=== PATIENT | male | born 1960 | race Two or more races ===

== ENCOUNTER 2022-01-19 19:35 | Inpatient (IN) | payer MEDICARE, OTHER ==
[~2022-01-19] VITALS: Ht 172.7 cm; Wt 72.6 kg
--- NOTE | 2022-01-19 19:48 | NUR ---
PT BIBRA C/O HAVING AN ACUTE EPISODE OF INAPPROPRIATE BEHAVIOR AT SNF. PT NOT ANSWERING ANY QUESTIONS UPON ASSESSMENT. PT ATTACHED TO MONITOR AND POX. PT GIVEN BLANKET AND CALL LIGHT WITHIN REACH.
--- NOTE | 2022-01-19 19:50 | NUR ---
COVID ANTIGEN SWAB COLLECTED AND SENT TO LAB. RECREATIONAL SPECIALIST AT PT'S BEDSIDE
--- NOTE | 2022-01-19 19:54 | NUR ---
LAB AT BEDSIDE
--- NOTE | 2022-01-19 20:14 | NUR ---
URINE SENT TO LAB
[2022-01-19] MEDS ORDERED: QUET200T PO (20:17)
[2022-01-19] MEDS ORDERED: ALBU90AE2 INH (20:17)
[2022-01-19] MEDS ORDERED: PALIPERIDONE IM (20:17)
[2022-01-19] MEDS ORDERED: TAMS-12 PO (20:17)
[2022-01-19] MEDS ORDERED: SIMV-49 PO (20:17)
[2022-01-19] MEDS ORDERED: ROFL500T PO (20:17)
[2022-01-19 20:23] LABS: BASOPHILS # (AUTO) 0.1 K/uL (0.0-0.2); EOSINOPHILS % (AUTO) 1.8 % (0.0-6.0); HEMATOCRIT 40 % (39-51); HEMOGLOBIN 13.4 g/dL (13.5-17.5); LYMPHOCYTES # (AUTO) 1.3 K/uL (0.8-4.8); LYMPHOCYTES % (AUTO) 13.9 % (20.0-44.0); MEAN CORPUSCULAR HGB CONC 34 g/dl (31.0-36.0); MEAN CORPUSCULAR VOLUME 86 fL (80-96); MONOCYTES # (AUTO) 1.2 K/uL (0.1-1.30); MONOCYTES % (AUTO) 13.5 % (2.0-12.0); NEUTROPHILS # (AUTO) 6.3 K/uL (1.8-8.9); NEUTROPHILS % (AUTO) 69.8 % (43.0-81.0); PLATELET COUNT (AUTO) 383 K/uL (150-450)
[2022-01-19 20:32] LABS: CALCIUM, SERUM 8.6 mg/dL (8.5-10.1); CARBON DIOXIDE 29 mmol/L (21-32); CHLORIDE 93 mmol/L (98-107); CREATININE 0.9 mg/dL (0.6-1.3); GLUCOSE 112 mg/dL (74-106); POTASSIUM 3.9 mmol/L (3.5-5.1); SODIUM SERUM 130 mmol/L (136-145); UREA NITROGEN, BLOOD 12 mg/dL (7-18)
[2022-01-19 20:37] LABS: ALANINE AMINOTRANSFERASE 19 U/L (12-78); ALBUMIN 3.8 g/dL (3.4-5.0); ALCOHOL, BLOOD < 3 mg/dL (0-0); ALKALINE PHOSPHATASE 82 U/L (46-116); ASPARTATE AMINOTRANSFERASE 11 U/L (15-37); BILIRUBIN,DIRECT 0.1 mg/dL (0.0-0.2); BILIRUBIN,TOTAL 0.4 mg/dL (0.2-1.0); TOTAL PROTEIN, SERUM 7.3 g/dL (6.4-8.2)
[2022-01-19 20:39] LABS: ACETAMINOPHEN < 0 ug/ml (10-30)
[2022-01-19 20:48] LABS: BILIRUBIN,URINE NEGATIVE (NEGATIVE); COLOR,URINE YELLOW (YELLOW); LEUKOCYTE ESTERASE ,URINE NEGATIVE (NEGATIVE); NITRITE, URINE NEGATIVE (NEGATIVE); PROTEIN,URINE NEGATIVE (NEGATIVE); UGLUCOSE NEGATIVE (NEGATIVE); UROBILINOGEN,URINE 0.2 EU/dL (0.2)
--- NOTE | 2022-01-19 21:59 | NUR ---
report given to mehreen Mathews for parminder
[2022-01-20] MEDS ORDERED: ALBUTEROL SULFATE INH SCH
[2022-01-20 01:10] VITALS: BP 125/66
--- NOTE | 2022-01-20 01:20 | NUR ---
PATIENT TRANSFERRED TO GPS IN STABLE CONDITION
[2022-01-20] MEDS ORDERED: MAG HYDROX/AL HYDROX/SIMETH 30 ML UDC PO PRN (01:30)
[2022-01-20] MEDS ORDERED: ACETAMINOPHEN 325 MG TABLET PO PRN (01:30)
[2022-01-20] MEDS ORDERED: MAGNESIUM HYDROXIDE 30 ML UDC PO PRN (01:30)
[2022-01-20] MEDS ORDERED: BLOOD SUGAR DIAGNOSTIC 1 EACH STRIP IN ONE (01:30)
--- NOTE | 2022-01-20 02:13 | NUR ---
GPS RN ADMITTING NOTES: PATIENT ARRIVED THIS UNIT ON A STRETCHER WITH 2 ER ESCORT AT 0110. PATIENT IS ON A 5150 HOLD FOR DTO/GD. HOLD WAS PLACED ON 01/20/22 @ 0052. PER HOLD, PATIENT WAS BROUGHT INTO ER BY AMBULANCE FROM [facility] FOR CONFUSION, BIZARRE BEHAVIOR, STRIKING AT STAFF, INCREASED AGITATION AND NOT COMPLYING WHEN DIRECTED. UPON ARRIVAL AT ER PATIENT APPEARS CONFUSED, STARES INTO AIR, UNABLE TO PROVIDE OWN FEEDING AND WAS VERY COMBATIVE. UPON FACE TO FACE EVALUATION, PATIENT IS A/O X1-2, APPEARS DEPRESSED, FLAT AFFECT, DISHEVELED, SELECTIVELY MUTE, INTERMITTENTLY ASKING FOR COFFEE, UNSTEADY GAIT, UNCOOPERATIVE AND REFUSING TO ANSWER MOST OF THE ADMISSION QUESTIONS. PATIENT HAS NO S/S OF DISTRESS, VITAL SIGNS WNL. DENIES ANY PAIN AT THIS TIME. PER PATIENT, HE IS FULLY VACCINATED WITH PFIZER BUT UNABLE TO RECALL THE DATES, REFUSED PNEUMOCOCCAL VACCINE. PATIENT BELONGINGS INVENTORIED, PATIENT HAS NO CONTRABAND. PATIENT REFUSED TO SIGNS ALL ADMISSION PAPERS AND REFUSED SKIN ASSESSMENT. ACCU CHECK DONE BS122. PATIENT IS UNDER THE PSYCHIATRIC CARE OF DR MATTHEWS AND [facility], BOTH DOCTORS HAVE BEEN NOTIFIED OF PATIENT ADMISSION AND ORDERS CARRIED OUT. PATIENT HANDBOOK AND PRESCRIPTION MEDICATIONS GUIDE GIVEN TO PATIENT. PATIENT HAS BEEN ORIENTED TO UNIT POLICY. BED IN LOW LOCKED POSITION, SIDE RAILS UP X2 FOR SAFETY. CALL GRAVES WITHIN REACH. ALL PATIENT CARE NEEDS HAVE BEEN MET AT THIS TIME. WILL CONTINUE TO MONITOR FOR Q15 SAFETY, MOOD AND BEHAVIOR.
--- NOTE | 2022-01-20 06:43 | NUR ---
GPS RN NOTES: PATIENT SISTER ANGELITA ABDULLAHI CALLED AT 0624 AND INFORMED OF PATIENT ADMISSION TO [facility]. UNIT PHONE NUMBER GIVEN, VISITING HOURS AND HOLD EXPLAINED. WILL ENDORSE TO AM SHIFT.
[2022-01-20 08:00] VITALS: BP 116/58
[2022-01-20] MEDS: TAMSULOSIN 0.4 MG CAP.SR.24H PO SCH (08:38)
[2022-01-20] MEDS ORDERED: Medication Not On Formulary EA (Roflumilast (Daliresp) 500 MCG) PO SCH (09:00)
--- NOTE | 2022-01-20 09:27 | NUR ---
KAMALJIT Initial Discharge Plan: Patient currently resides at [facility] [address] [place] [address], [place], [place] ([phone]). KAMALJIT contacted Kim social security assessor from the nursing facility ([phone]) (Office: [phone], ext. [phone]) and left a voicemail to discuss if pt is welcomed back or not. KAMALJIT requested to contact this engineering writer back. KAMALJIT will work with the MD and treatment team to help coordinate appropriate treatment.
--- NOTE | 2022-01-20 09:27 | NUR ---
Clinical Social Work Note: Patient placed on a 5150 hold for danger to others and GD. Patient was aggressive at this facility and was striking out at staff. Patient currently resides at [address] ([phone]). KAMALJIT contacted Kim director of social media marketing from the nursing facility ([phone]) (Office: [phone], ext. [phone]) and left a voicemail to discuss if pt is welcomed back or not.
--- NOTE | 2022-01-20 09:28 | NUR ---
Treatment Plan: Patient refused to sign treatment plan due to being suspicious.
--- NOTE | 2022-01-20 09:30 | NUR ---
Family Contact: KAMALJIT contacted pt's sister Patti ([phone]) to discuss treatment plan and discharge plan. SW educated sister on 1420/4130 hold. She reported that she is an RN and is familiar of treatment. She reported that she has not seen pt this way for a while. She reported that pt needs to have a medical examination before treating his psych issues. KAMALJIT had to re-direct Patti and explain the process multiple times.
--- NOTE | 2022-01-20 09:38 | NUR ---
RN Notes: Received pt. awake in bed, responsive to staffs, pt. is delusional and paranoid and stating that he is mad with the government.Ate 100% for breakfast, and compliant on med. Pt. isolates in room, encouraged to verbalize feelings and motivated to attend group activity. Needs attended and will continue to monitor for safety.
--- NOTE | 2022-01-20 09:51 | NUR ---
SNF Contact: KAMALJIT contacted Kim social sciences lecturer from the nursing facility ([phone]) (Office: [phone], ext. [phone]) and left a voicemail to discuss if pt is welcomed back or not. She stated that she will contact this report writer.
--- NOTE | 2022-01-20 15:02 | NUR ---
Called the office of Dr. Ellis at [phone] and spoke to Jammie.
[2022-01-20 16:00] VITALS: BP 121/71
[2022-01-20] MEDS: risperiDONE 1 MG TABLET PO SCH (16:15)
[2022-01-20 19:52] VITALS: BP 128/62
[2022-01-20 20:39] VITALS: BP 126/62
[2022-01-20] MEDS: SIMVASTATIN 20 MG TABLET PO SCH (21:27)
[2022-01-20] MEDS: MIRTAZAPINE 15 MG TABLET PO SCH (21:27)
[2022-01-21 07:24] LABS: ALBUMIN 3.5 g/dL (3.4-5.0); BILIRUBIN,TOTAL 0.4 mg/dL (0.2-1.0); CALCIUM, SERUM 8.5 mg/dL (8.5-10.1); CREATININE 0.5 mg/dL (0.6-1.3); POTASSIUM 4.1 mmol/L (3.5-5.1); TOTAL PROTEIN, SERUM 6.6 g/dL (6.4-8.2)
[2022-01-21 08:00] VITALS: BP 109/68
[2022-01-21] MEDS: risperiDONE 1 MG TABLET PO SCH ×2 (08:05→17:16)
[2022-01-21] MEDS: TAMSULOSIN 0.4 MG CAP.SR.24H PO SCH (08:05)
[2022-01-21] MEDS: LORAZEPAM 1 MG TABLET PO PRN (14:29)
--- NOTE | 2022-01-21 14:31 | NUR ---
RN-NOTES PATIENT REFUSED CT SCAN DESPITE EXPLANATIONS RISK AND BENEFITS. PATIENT GETS ANGRY. NOTED PATIENT ALSO RESPONDING TO INTERNAL STIMULI/TALKING IN A LOUD VOICE AND LAUGHING TO SELF. ATIVAN 1MG P.O GIVEN PRN ORDER. WILL CONT. MONITORING FOR SAFETY AND BEHAVIOR. .
--- NOTE | 2022-01-21 15:35 | NUR ---
RN-NOTES PATIENT LYING IN BED SLEEPING ,EASILY AROUSED,NO ACUTE DISTRESS NOTED.
[2022-01-21 16:00] VITALS: BP 125/80
[2022-01-21 16:52] LABS: CHOLESTEROL 135 mg/dL (<200); HDL CHOLESTEROL 62 mg/dL (40-60); LDL 58 mg/dL (0-99); TRIGLYCERIDES 79 mg/dL (30-150)
--- NOTE | 2022-01-21 17:30 | NUR ---
RN-NOTES PATIENT IS VISIBLE IN THE UNIT AMBULATING WITH WALKER,,A/OX2 ,NO ACUTE DISTRESS NOTED.COMPLIANT WITH MEDICATIONS. NOTED PATIENT WITH EASILY ANGRY ,NEEDY AND DEMANDING BEHAVIOR. ALL NEEDS ATTENDED AND ANTICIPATED WILL CONT. MONITORING FOR SAFETY AND BEHAVIOR.WILL ENDORSE TO INCOMING SHIFT FOR CONTINUITY OF CARE.
[2022-01-21 19:59] VITALS: BP 115/72
[2022-01-21 20:00] VITALS: BP 115/72
[2022-01-21] MEDS: SIMVASTATIN 20 MG TABLET PO SCH (22:12)
[2022-01-21] MEDS: MIRTAZAPINE 15 MG TABLET PO SCH (22:12)
[2022-01-22] MEDS: LORAZEPAM 1 MG TABLET PO PRN ×2 (07:24→19:51)
--- NOTE | 2022-01-22 07:25 | NUR ---
RN-NOTES RECEIVED PATIENT ANGRY RESPONDING TO INTERNAL STIMULI/TALKING IN A LOUD VOICE AND MUMBLING TO SELF. ATIVAN 1MG P.O GIVEN PRN ORDER. WILL CONT. MONITORING FOR SAFETY AND BEHAVIOR. .
[2022-01-22 08:00] VITALS: BP 110/67
--- NOTE | 2022-01-22 08:30 | NUR ---
RN-NOTES PATIENT LYING IN BED AWAKE,ALERT,NO ACUTE DISTRESS NOTED.
[2022-01-22] MEDS: TAMSULOSIN 0.4 MG CAP.SR.24H PO SCH (09:04)
[2022-01-22] MEDS: risperiDONE 1 MG TABLET PO SCH ×2 (09:04→17:04)
[2022-01-22 16:00] VITALS: BP 133/76
--- NOTE | 2022-01-22 17:38 | NUR ---
RN-NOTES PATIENT LYING IN BED AWAKE,ALERT,A/OX2 ,NO ACUTE DISTRESS NOTED.AMBULATORY WITH WALKER.COMPLIANT WITH MEDICATIONS.NOTED PATIENT WITH NEEDY,TALKING AND LAUGHING TO SELF, AND DEMANDING BEHAVIOR. ALL NEEDS ATTENDED AND ANTICIPATED WILL CONT. MONITORING FOR SAFETY AND BEHAVIOR. WILL ENDORSE TO INCOMING SHIFT FOR CONTINUITY OF CARE.
[2022-01-22 19:28] VITALS: BP 117/72
--- NOTE | 2022-01-22 19:54 | NUR ---
GPS RN NOTE: ANXIETY PATIENT IS ANGRY, ANXIOUS, RESPONDING TO INTERNAL STIMULI/TALKING IN A LOUD VOICE AND MUMBLING TO SELF. ATIVAN 1 MG P.O GIVEN PRN ORDER. WILL CONT. MONITORING FOR SAFETY AND BEHAVIOR.
--- NOTE | 2022-01-22 20:03 | NUR ---
GPS RN NOTE PATIENT IS FOCUSED ON DRINKING COFFEE AND JUICES EVERY 15- 30 MINUTES. EXPLAINED TO THE PATIENT THAT HIS BLOOD GLUCOSE LEVEL AND HGBA1C IS ELEVATED AND HE NEEDS TO AVOID DRINKING TOO MUCH COFFEE AND JUICES, DRINK WATER INSTEAD. DESPITE OF RISKS AND BENEFITS EXPLANATIONS, PATIENT GETS ANXIOUS, AGITATED, IRRITABLE EASILY AND REFUSES TO DRINK WATER, ONLY INSISTS TO DRINK COFFEE AND JUICES. PATIENT IS REDIRECTABLE WITH SET LIMITS AT THIS TIME. WILL CONTINUE TO MONITOR FOR ANY CHANGE OF CONDITION.
[2022-01-22 20:13] VITALS: BP 117/72
--- NOTE | 2022-01-22 20:42 | NUR ---
GPS RN NOTE PATIENT CAME OUT OF HIS ROOM AGAIN ASKING FOR 3 APPLE JUICE, WHEN WASHER ASSEMBLER TRIED TO EXPLAIN TO THE PATIENT ABOUT RISKS OF DRINKING TOO MUCH JUICE INSTEAD OF WATER DUE TO HIS HIS ELEVATED BLOOD SUGAR LEVELS AND HGBA1C, PATIENT GOT AGITATED, THUD HIS WALKER ON THE GROUND AND STATED," YOU ARE A JERK." THEN PATIENT WALKED BACK TO HIS ROOM REFUSING TO DRINK WATER. WILL CONTINUE TO MONITOR PATIENT'S BEHAVIOR.
[2022-01-22] MEDS: SIMVASTATIN 20 MG TABLET PO SCH (21:18)
[2022-01-22] MEDS: MIRTAZAPINE 15 MG TABLET PO SCH (21:18)
[2022-01-23 08:00] VITALS: BP 113/62
[2022-01-23] MEDS: risperiDONE 1 MG TABLET PO SCH ×2 (08:45→16:46)
[2022-01-23] MEDS: TAMSULOSIN 0.4 MG CAP.SR.24H PO SCH (08:45)
--- NOTE | 2022-01-23 09:24 | NUR ---
RN-CO:PATIENT IS AWAKE, DENIED PAIN AND DISCOMFORTS. UNKEMPT AND DISHEVELED. HE IS FOCUS ON DRINKING COFFEE AND GETS IRRITATED WHEN REDIRECT. HE IS VISIBLE IN THE UNIT. I WILL CONTINUE TO MONITOR.
--- NOTE | 2022-01-23 13:09 | NUR ---
.PT IS DEMANDING AND ENTITLED.
--- NOTE | 2022-01-23 15:06 | NUR ---
RN-CO: TALKED TO ANGELITA SISTER IF THEY HAVE DALIRESP TABLET AT HOME, SHE STATED THAT THEY DON'T HAVE IT. I WILL NOTIFY MINDY MCKNIGHT NP FOR ALTERNATIVE.
[2022-01-23 16:00] VITALS: BP 121/72
--- NOTE | 2022-01-23 19:20 | NUR ---
GPS RN NOTES RECEIVED PATIENT IN BED AWAKE, ALERT AND ORIENTED X1-2, NO S/SX OF ACUTE DISTRESS NOTED. PATIENT IS VISIBLE IN THE UNIT, EASILY AGITATED, DEMANDING, ENTITLED, UNKEMPT AND DISHEVELED. PT IS FOCUS ON DRINKING COFFEE AND GETS IRRITATED WHEN REDIRECT. DENIES PAIN OR DISCOMFORT AT THIS TIME. NO VERBALIZATION OF THOUGHTS AND FEELINGS. SAFETY PRECAUTIONS IN PLACE. WILL CONTINUE TO MONITOR Q15MIN ROUNDS FOR SAFETY AND BEHAVIOR.
[2022-01-23] MEDS: ALBUTEROL FS 2.5 MG/3 ML VIAL.NEB NEB PRN (19:35)
[2022-01-23] MEDS: IPRATROPIUM NEB FS 0.5 MG/2.5 ML AMPUL.NEB NEB PRN (19:35)
[2022-01-23 20:13] VITALS: BP 130/85
[2022-01-23] MEDS: MIRTAZAPINE 15 MG TABLET PO SCH (21:25)
[2022-01-23] MEDS: SIMVASTATIN 20 MG TABLET PO SCH (21:25)
[2022-01-24 08:00] VITALS: BP 158/79
[2022-01-24] MEDS: TAMSULOSIN 0.4 MG CAP.SR.24H PO SCH (08:51)
[2022-01-24] MEDS: risperiDONE 1 MG TABLET PO SCH ×2 (08:51→16:59)
[2022-01-24 16:00] VITALS: BP 138/88
--- NOTE | 2022-01-24 19:45 | NUR ---
GPS RN OPENING NOTES: RECEIVED PATIENT IN HALLWAY ASKING FOR COFFEE, AWAKE A/O X1-2, DISHEVELED, UNKEPT, RESTLESS, ANXIOUS, DEMANDING FOR COFFEE, DISORGANIZED. AMBULATING WITH WALKER. TEACHING PROVIDED ABOUT TOO MUCH COFFEE CONSUMPTION BUT PATIENT IS VERY FOCUSED ON COFFEE AND KEEPS ASKING EVERY FEW MINUTES, REENFORCEMENT NEEDED. NO S/S OF DISTRESS. RESPIRATION EVEN AND UNLABORED WITH EQUAL RISE AND FALL OF THE CHEST, ON ROOM AIR. OFFERED FLUID AND SNACKS TOLERATED. WILL CONTINUE TO MONITOR Q15 FOR MOOD, SAFETY AND BEHAVIOR.
[2022-01-24 20:58] VITALS: BP 127/75
[2022-01-24] MEDS: MIRTAZAPINE 15 MG TABLET PO SCH (21:20)
[2022-01-24] MEDS: SIMVASTATIN 20 MG TABLET PO SCH (21:20)
--- NOTE | 2022-01-24 21:26 | NUR ---
GPS RN NOTES: REMERON 7.5MG WASTED PER PARTIAL DOSE ORDER. WILL CONTINUE TO MONITOR.
[2022-01-25] MEDS: ALBUTEROL FS 2.5 MG/3 ML VIAL.NEB NEB PRN (01:03)
[2022-01-25] MEDS: IPRATROPIUM NEB FS 0.5 MG/2.5 ML AMPUL.NEB NEB PRN (01:04)
[2022-01-25 08:00] VITALS: BP 134/73
[2022-01-25] MEDS: risperiDONE 1 MG TABLET PO SCH ×2 (08:28→16:49)
[2022-01-25] MEDS: TAMSULOSIN 0.4 MG CAP.SR.24H PO SCH (08:28)
[2022-01-25 15:12] VITALS: BP 148/82
[2022-01-25 19:42] VITALS: BP 118/74
--- NOTE | 2022-01-25 19:42 | NUR ---
GPS RN OPENING NOTES: RECEIVED PATIENT AMBULATING IN HALLWAY ASKING FOR COFFEE, AWAKE A/O X1-2, DISHEVELED, UNKEPT, RESTLESS, ANXIOUS, NO CHANGE IN PATIENT CONDITION, DEMANDING FOR COFFEE, DISORGANIZED. TEACHING PROVIDED ABOUT THE EFFECT OF TOO MUCH COFFEE CONSUMPTION BUT PATIENT IS VERY FOCUSED ON COFFEE AND KEEPS ASKING EVERY FEW MINUTES, REENFORCEMENT NEEDED. NO S/S OF DISTRESS. RESPIRATION EVEN AND UNLABORED WITH EQUAL RISE AND FALL OF THE CHEST, ON ROOM AIR. OFFERED FLUID AND SNACKS TOLERATED. WILL CONTINUE TO MONITOR Q15 FOR MOOD, SAFETY AND BEHAVIOR.
[2022-01-25] MEDS: SIMVASTATIN 20 MG TABLET PO SCH (21:12)
[2022-01-25] MEDS: MIRTAZAPINE 15 MG TABLET PO SCH (21:13)
[2022-01-26 08:00] VITALS: BP 100/66
[2022-01-26] MEDS: risperiDONE 1 MG TABLET PO SCH ×2 (08:14→16:20)
[2022-01-26] MEDS: TAMSULOSIN 0.4 MG CAP.SR.24H PO SCH (08:14)
--- NOTE | 2022-01-26 09:10 | NUR ---
RN-CO: DR MATTHEWS TALKED TO THE PATIENT AND AGREED TO HAVE CT SCAN W/O CONTRAST.
--- NOTE | 2022-01-26 09:26 | NUR ---
Court Notification: KAMALJIT contacted pt's sister Patti ([phone]) and notified of 5250 hearing is today.
--- NOTE | 2022-01-26 09:43 | NUR ---
RN-CO: PATIENT IS VISIBLE IN THE UNIT, DISHEVELED AND UNKEMPT. REFUSED TO SHOWER, FOCUS ON DRINKING COFFEE AND JUICE . HE NEEDS LIMIT SETTING. HE IS SOMEWHAT BETTER BECAUSE HE LISTENS TO REDIRECTIONS MORE. EASILY AGITATED AND NOTED TALKING TO SELF.
--- NOTE | 2022-01-26 10:58 | NUR ---
Court Hearing: Patient's court hearing for 5070 was today and it was upheld for GD.
--- NOTE | 2022-01-26 15:00 | NUR ---
RN-CO: PT REFUSED CT SCAN , HE STARTED YELLING AND SCREAMING WHEN HE LEARNED THAT HE NEEDS TO GO TO THE PROCEDURE. IN THE MORNING HE AGREED TO TAKE IT WHEN DR MATTHEWS TALKED TO HIM.
[2022-01-26 16:00] VITALS: BP 142/84
--- NOTE | 2022-01-26 19:15 | NUR ---
GPS RN NOTES PATIENT IN BED AWAKE, ALERT AND ORIENTED X2, NO S/SX OF ACUTE DISTRESS NOTED. PATIENT IS VISIBLE IN THE UNIT, DEMANDING, UNKEMPT AND DISHEVELED, TALKING TO SELF, REDIRECTABLE, FOCUS ON COFFEE AND JUICE. DENIES PAIN OR DISCOMFORT AT THIS TIME. NO VERBALIZATION OF THOUGHTS AND FEELINGS. SAFETY PRECAUTIONS IN PLACE. WILL CONTINUE TO MONITOR Q15MIN ROUNDS FOR SAFETY AND BEHAVIOR.
[2022-01-26 20:00] VITALS: BP 121/65
[2022-01-26] MEDS: SIMVASTATIN 20 MG TABLET PO SCH (21:01)
[2022-01-26] MEDS: MIRTAZAPINE 15 MG TABLET PO SCH (21:01)
[2022-01-27 08:00] VITALS: BP 112/75
[2022-01-27] MEDS: TAMSULOSIN 0.4 MG CAP.SR.24H PO SCH (08:08)
[2022-01-27] MEDS: risperiDONE 1 MG TABLET PO SCH ×2 (08:08→16:14)
--- NOTE | 2022-01-27 09:30 | NUR ---
RN Notes: Received pt. awake in bed, quiet, suspicious and responsive to staffs. Pt. ate breakfast and compliant on meds. Pt. is unkempt and with poor hygiene, isolates in room and up for needs. Pt. is needy and needs attended. Encouraged to verbalize feelings, motivated to take shower and encouraged to attend group activity. No distress and no agitation noted. Will continue to monitor for safety.
--- NOTE | 2022-01-27 15:00 | NUR ---
Pt. refused for CT of the head again and tech made aware.
[2022-01-27 16:00] VITALS: BP 117/67
--- NOTE | 2022-01-27 19:30 | NUR ---
GPS RN NOTE, RECEIVED PATIENT AWAKE AND IN BED, NO S/S OR COMPLAINTS OF PAIN AT THIS TIME. PATIENT IS DISPLAYING NO S/S OF APPARENT DISTRESS AT THIS TIME. PATIENT BREATHING IS UNLABORED WITH EQUAL RISE AND FALL OF THE CHEST. PATIENT IS ALERT AND ORIENTED X 1-2 ON ROOM AIR WITH A SPO2 95%. PATIENT IS FOCUSED ON COFFEE. PATIENT IS COMPLIANT WITH MEDICATIONS, CONFUSED, ANXIOUS, PARANOID, NEEDS REDIRECTION, AND COOPERATIVE. PATIENT DENIES SUICIDAL AND HOMICIDAL IDEATIONS AT THIS TIME. PATIENT ASSISTED WITH TURNING AND REPOSITIONING Q2HR AND PRN FOR COMFORT AND CIRCULATION. PATIENT HAS NO NEEDS AT THIS TIME. PATIENT EDUCATED ON THE USE OF THE CALL GRAVES. PATIENT BED SIDE RAILS UP X 2 FOR SAFETY. PATIENT BED IS LOCKED, LOW, WITH BED ALARM ON. WILL CONTINUE TO MONITOR THIS PATIENT Q15 MINUTES WITH THE HELP OF STAFF TO MAINTAIN SAFETY.
[2022-01-27 20:00] VITALS: BP 131/68
[2022-01-27] MEDS: MIRTAZAPINE 15 MG TABLET PO SCH (21:10)
[2022-01-27] MEDS: SIMVASTATIN 20 MG TABLET PO SCH (21:10)
[2022-01-28 08:00] VITALS: BP 135/70
[2022-01-28] MEDS: risperiDONE 1 MG TABLET PO SCH ×2 (08:19→16:03)
[2022-01-28] MEDS: TAMSULOSIN 0.4 MG CAP.SR.24H PO SCH (08:19)
--- NOTE | 2022-01-28 09:50 | NUR ---
RN Notes: Received pt. awake in bed, responsive to staffs, no distress and no agitation noted. Ate 100% for breakfast, compliant on meds. Pt. is visible in the unit and needy. Encouraged to verbalize feelings and motivated to attend group activity. Needs attended and will continue to monitor for safety.
[2022-01-28 16:00] VITALS: BP 138/80
[2022-01-28 19:38] VITALS: BP 144/78
[2022-01-28] MEDS: LORAZEPAM 1 MG TABLET PO PRN (19:50)
--- NOTE | 2022-01-28 19:53 | NUR ---
GPS RN NOTE: ANXIETY PATIENT IS ANXIOUS/RESTLESS, RESPONDING TO INTERNAL STIMULI/TALKING IN A LOUD VOICE AND MUMBLING TO SELF. ATIVAN 1 MG P.O GIVEN PRN ORDER. WILL CONT. MONITORING FOR SAFETY AND BEHAVIOR.
[2022-01-28 20:17] VITALS: BP 144/78
[2022-01-28] MEDS: SIMVASTATIN 20 MG TABLET PO SCH (21:17)
[2022-01-28] MEDS: MIRTAZAPINE 15 MG TABLET PO SCH (21:17)
[2022-01-29 08:00] VITALS: BP 134/68
[2022-01-29] MEDS: TAMSULOSIN 0.4 MG CAP.SR.24H PO SCH (09:18)
[2022-01-29] MEDS: risperiDONE 1 MG TABLET PO SCH ×2 (09:21→18:44)
[2022-01-29 16:00] VITALS: BP 117/67
--- NOTE | 2022-01-29 18:00 | NUR ---
UP AND DOWN ALL SHIFT.INCONTINENT WITH DIAPER CHGS. FREQ.
[2022-01-29 20:15] VITALS: BP 116/69
[2022-01-29 20:20] VITALS: BP 116/69
--- NOTE | 2022-01-29 20:45 | NUR ---
GPS RN NOTE PATIENT WANTED TO TAKE BREATHING TREATMENT FOR OCCASIONAL SHORT OF BREATH. RT WAS NOTIFIED, RT CAME AND ASSESSED THE PATIENT, O2 SATURATION WAS 92%, BREATHING TREATMENT WAS GIVEN BY RT PER MD ORDER. PATIENT VERBALIZED LATER THAT BREATHING TREATMENT WAS EFFECTIVE. WILL CONTINUE TO MONITOR THE PATIENT FOR ANY CHANGE OF CONDITION.
[2022-01-29] MEDS: IPRATROPIUM NEB FS 0.5 MG/2.5 ML AMPUL.NEB NEB PRN (21:15)
[2022-01-29] MEDS: ALBUTEROL FS 2.5 MG/3 ML VIAL.NEB NEB PRN (21:15)
[2022-01-29] MEDS: SIMVASTATIN 20 MG TABLET PO SCH (21:36)
[2022-01-29] MEDS: MIRTAZAPINE 15 MG TABLET PO SCH (21:36)
[2022-01-30 08:00] VITALS: BP 107/67
[2022-01-30] MEDS: TAMSULOSIN 0.4 MG CAP.SR.24H PO SCH (08:08)
[2022-01-30] MEDS: risperiDONE 1 MG TABLET PO SCH ×2 (08:09→16:23)
--- NOTE | 2022-01-30 09:24 | NUR ---
RN-CO: RN-CO: PATIENT IS VISIBLE IN THE UNIT, NO CHANGES FROM LAST WEEK.STILL FOCUS ON COFFEE AND JUICE. EASILY AGITATED AND YELLED AT THE NURSE WHEN COFFEE OR JUICE IS NOT GIVEN TO HIM RIGHT AWAY. HE NEEDS FIRM LIMIT SETTING. UNMOTIVATED TO GROOMING AND SELFCARE. REFUSED TO TAKE A SHOWER. I WILL CONTINUE TO MONITOR.
[2022-01-30 16:00] VITALS: BP 116/67
--- NOTE | 2022-01-30 19:20 | NUR ---
GPS RN NOTES PATIENT IN BED AWAKE, ALERT AND ORIENTED X2, NO S/SX OF ACUTE DISTRESS NOTED. PATIENT IS VISIBLE IN THE UNIT, DEMANDING, UNKEMPT AND DISHEVELED, TALKING TO SELF, REDIRECTABLE, FOCUS ON COFFEE AND JUICE, EASILY IRRITABLE ANTONIO HIS NEEDS ARE NOT MET. DENIES PAIN OR DISCOMFORT AT THIS TIME. NO VERBALIZATION OF THOUGHTS AND FEELINGS. SAFETY PRECAUTIONS IN PLACE. WILL CONTINUE TO MONITOR Q15MIN ROUNDS FOR SAFETY AND BEHAVIOR.
[2022-01-30] MEDS: MIRTAZAPINE 15 MG TABLET PO SCH (21:40)
[2022-01-30] MEDS: SIMVASTATIN 20 MG TABLET PO SCH (21:40)
[2022-01-31] MEDS: ZOLPIDEM TARTRATE 5 MG TABLET PO PRN ×2 (00:10→22:10)
[2022-01-31 08:00] VITALS: BP 137/68
[2022-01-31] MEDS: risperiDONE 1 MG TABLET PO SCH ×2 (09:22→17:22)
[2022-01-31] MEDS: TAMSULOSIN 0.4 MG CAP.SR.24H PO SCH (09:24)
--- NOTE | 2022-01-31 10:07 | NUR ---
Family Contact: KAMALJIT contacted pt's sister Patti ([phone]) and notified that pt will be discharged 02/01 and waiting for Kim from [facility] to review and accept pt back.
--- NOTE | 2022-01-31 10:08 | NUR ---
Shank Pinner: KAMALJIT received a call from employment case manager Willian ([phone]) left a voicemail. SW contacted back and left a detailed voicemail.
--- NOTE | 2022-01-31 10:20 | NUR ---
KAMALJIT Coordination of Care: KAMALJIT spoke with KAMALJIT Alvarez ([phone]) who confirmed pt is welcomed back tomorrow 02/01. KAMALJIT faxed clinicals ([phone]).
[2022-01-31 16:00] VITALS: BP 110/59
--- NOTE | 2022-01-31 16:06 | NUR ---
Individual Counseling: SW met with pt. to facilitate individual counseling. Pt. venting about needing a diaper change. Nurse was notified. Pt. asking for coffee. SW redirected pt. throughout conversation. SW used boundary setting and engaged the pt. with interaction.
[2022-01-31 19:44] VITALS: BP 140/66
[2022-01-31] MEDS: MIRTAZAPINE 15 MG TABLET PO SCH (21:00)
[2022-01-31] MEDS: SIMVASTATIN 20 MG TABLET PO SCH (21:00)
[2022-02-01 08:00] VITALS: BP 125/69
--- NOTE | 2022-02-01 08:03 | NUR ---
KAMALJIT Discharge Note: Patient will be discharged to [facility] located at [address], [place] [address]; ([phone]) Please arrange ambulance transportation. Solar Sales Consultant spoke with Kim KAMALJIT ([phone]) stated patient will be accepted at facility today. Patient is alert and oriented x2, and is not able to plan for self-care at this time, but is willing to accept care provided, Patient denies any suicidal or homicidal ideations. Patient is aware and agreeable with discharge plans. Pts sister Patti ([phone]) is aware and agreeable. Patient will continue to follow-up with her (Psychiatrist) Dr. [place] [address] [place] [address]; (Military Personnel Specialist) Dr. Jossue Rodriguez located at [address], [place] [address]; . Patient presents with euthymic mood and congruent affect.
[2022-02-01] MEDS: risperiDONE 1 MG TABLET PO SCH (08:20)
[2022-02-01] MEDS: TAMSULOSIN 0.4 MG CAP.SR.24H PO SCH (08:21)
--- NOTE | 2022-02-01 13:20 | NUR ---
FIELD PROFESSIONAL NOTE- PT DC AT THIS TIME [facility]IA [place] TO [facility]. VS STABLE, AOX3, CALM, INTERACTIVE, NO DISTRESS. REPORT CALLED TO FACILITY AT 1130. AFTERCARE AND ORDERS REVIEWED AND UNDERSTOOD. PT ID [id number] REMOVED. DENIES SI HI AH VH. ESCORTED OFF UNIT W CLOTHING AND BELONGINGS. ASSISTED BY AMBULANCE STAFF
== END 2022-02-01 13:20 | DRG 885 ==
LOC: ER 19:56 → GPS 22:00
PROVIDERS: ADMIT Psychiatry & Neurology Psychiatry; ATTEND Student in an Organized Health Care Education/Training Program
DX: F25.0 Schizoaffective disorder, bipolar type (principal); E87.1 Hypo-osmolality and hyponatremia; F29 Unspecified psychosis not due to a substance or known physiological condition; K21.9 Gastro-esophageal reflux disease without esophagitis; J44.9 Chronic obstructive pulmonary disease, unspecified; Z87.09 Personal history of other diseases of the respiratory system; Z79.51 Long term (current) use of inhaled steroids; Z79.899 Other long term (current) drug therapy; E78.5 Hyperlipidemia, unspecified; N40.0 Benign prostatic hyperplasia without lower urinary tract symptoms; F03.90 Unspecified dementia, unspecified severity, without behavioral disturbance, psychotic disturbance, mood disturbance, and anxiety
CPT/HCPCS: 36415; 80048-TC; 80053-TC; 80061-TC; 80076-TC; 82962-TC; 85025-TC; 87081-TC; 97116-TC; 97530-TC; C9803; G0480